=== PATIENT | female | born 1955 | race Caucasian/White ===

== ENCOUNTER 2018-10-31 11:15 | Emergency (ER) | payer SELFPAY ==
[2018-10-31] MEDS ORDERED: IV NS 0.9% 1,000 ML BAG IV ONE (11:30)
[2018-10-31] MEDS ORDERED: ONDANSETRON HCL/PF 4 MG/2 ML VIAL IVP ONE (11:30)
[2018-10-31] MEDS ORDERED: HALOPERIDOL LACTATE INJ 5 MG/ML VIAL IM ONE (11:30)
[2018-10-31] MEDS ORDERED: HALOPERIDOL LACTATE INJ 5 MG/ML VIAL ONE (11:49)
[2018-10-31] MEDS ORDERED: ONDANSETRON HCL/PF 4 MG/2 ML VIAL ONE (11:49)
== END 2018-10-31 13:30 | disposition home or self-care (01) ==
DX: R11.10 Vomiting, unspecified (principal)
CPT/HCPCS: 36415; 80048; 80076; 81001; 83690; 85025; 87081; 96361; 96372; 96374; 99283; J1630; J2405; J7030

== ENCOUNTER 2021-10-22 04:46 | Emergency (ER) | payer MEDICARE, OTHER ==
[~2021-10-22] VITALS: Ht 167.6 cm; Wt 73.0 kg
--- NOTE | 2021-10-22 05:00 | NUR ---
TO ER BED 11. BIBBROTHER C/O CONGESTION FOR THE PAST FEW DAYS . PT IS ALERT AND ORIENTED. BREATHING IS EVEN AND NONLABORED. CONNECTED TO MONITOR. AWAITING MD ORDERS
[2021-10-22] MEDS ORDERED: predniSONE 20 MG TABLET ONE (05:08)
[2021-10-22] MEDS ORDERED: ALBUTEROL FS 2.5 MG/3 ML VIAL.NEB ONE (05:17)
[2021-10-22] MEDS ORDERED: IPRATROPIUM NEB FS 0.5 MG/2.5 ML AMPUL.NEB ONE (05:17)
[2021-10-22] MEDS ORDERED: ALBUTEROL FS 2.5 MG/3 ML VIAL.NEB NEB ONE (05:30)
[2021-10-22] MEDS ORDERED: IPRATROPIUM NEB FS 0.5 MG/2.5 ML AMPUL.NEB NEB ONE (05:30)
[2021-10-22] MEDS ORDERED: predniSONE 20 MG TABLET PO ONE (05:30)
[2021-10-22] MEDS ORDERED: PRED20TA PO (07:29)
--- NOTE | 2021-10-22 08:00 | NUR ---
Patient discharged to home in stable condition. Written and verbal after care instructions given. Patient verbalizes understanding of instruction.
[2021-10-22 08:28] VITALS: BP 129/80
== END 2021-10-22 08:28 | disposition home or self-care (01) ==
LOC: ER 05:04
DX: R09.81 Nasal congestion (principal); R05.9 Cough, unspecified; R06.02 Shortness of breath; R06.2 Wheezing; Z79.899 Other long term (current) drug therapy
CPT/HCPCS: 99285; 71045; 94640; J7512

== ENCOUNTER 2021-11-02 02:36 | Emergency (ER) | payer MEDICARE, OTHER ==
[~2021-11-02] VITALS: Ht 167.6 cm; Wt 69.4 kg
[~2021-11-02 02:36] MED LIST: PRED20TA PO
[2021-11-02] MEDS ORDERED: ALBUTEROL FS 2.5 MG/3 ML VIAL.NEB NEB ONE (03:00)
[2021-11-02] MEDS ORDERED: IPRATROPIUM NEB FS 0.5 MG/2.5 ML AMPUL.NEB NEB ONE (03:00)
[2021-11-02] MEDS ORDERED: IPRATROPIUM NEB FS 0.5 MG/2.5 ML AMPUL.NEB ONE (03:03)
[2021-11-02] MEDS ORDERED: ALBUTEROL FS 2.5 MG/3 ML VIAL.NEB ONE (03:03)
--- NOTE | 2021-11-02 03:03 | NUR ---
[id number]. SOB X 1 HR. NOTED 84% ON RA. GIVEN ALBUTEROL 10MG [employer] AND REPORTS IMPROVEMENT WITH SYMPTOMS. 91% ON RA PLACED ON 2LPM NC UPON ARRIVAL. PT AFEBRILE PLACED ON MONITOR AND V/S WNL. RT PAGED FOR BREATHING TREATMENT.
[2021-11-02] MEDS ORDERED: PRED20TA PO (05:10)
--- NOTE | 2021-11-02 05:22 | NUR ---
[facility] CALLED FOR BLS TO BRING PT BACK TO APARTMENT PER [facility] ETA - @ [phone]
--- NOTE | 2021-11-02 07:38 | NUR ---
Patient discharged to home in stable condition. Written and verbal after care instructions given. Patient verbalizes understanding of instruction. Transportation arrived, report given. IV removed. Catheter intact and site benign. Pressure and 4x4 applied to site. No bleeding noted. Patient trasnported back home in stable codition.
[2021-11-02 07:47] VITALS: BP 112/64
== END 2021-11-02 07:44 | disposition home or self-care (01) ==
LOC: ER 02:49
DX: J45.909 Unspecified asthma, uncomplicated (principal)
CPT/HCPCS: 71045-TC